=== PATIENT | female | born 1950 | race Caucasian/White ===

== ENCOUNTER 2017-12-15 15:20 | Emergency (ER) | payer MEDICARE ==
[2017-12-15] MEDS ORDERED: ACETAMINOPHEN 325 MG TAB ONE (15:55)
[2017-12-15] MEDS ORDERED: IPRATROPIUM/ALBUTEROL SULFATE 3 ML SOLUTION IH ONE (16:19)
[2017-12-15 16:20] LABS: RAPID GROUP A STREP NEGATIVE (NEGATIVE)
== END 2017-12-15 17:13 | disposition home or self-care (01) ==
LOC: EDH 15:20
DX: J09.X2 Influenza due to identified novel influenza A virus with other respiratory manifestations (principal); E07.9 Disorder of thyroid, unspecified; Z88.1 Allergy status to other antibiotic agents
CPT/HCPCS: 71046; 87804; 87880; 94640